=== PATIENT | male | born 1960 | race Caucasian/White ===

== ENCOUNTER 2016-06-02 11:58 | Outpatient (CLI) | payer OTHER ==
[2016-06-02] VITALS (8 sets, daily range): BP systolic 100–170; BP diastolic 33–96; PULSE 55–70; TEMP 97.8
[~2016-06-02] VITALS: Ht 182.9 cm; Wt 72.7 kg
[~2016-06-02 11:58] MED LIST: ASPIRIN 81M81 MG/TA2 PO; CYMBALTA 60MG60 MG PO; DOXYCYCLINE HY100 MG PO; FOLIC ACID 11 MG/TA1 PO; INSULIN R (N100 U/ML SQ; LEVAQUIN 5500 MG/TA1 PO; LOPRESSOR 225 MG/TAB PO; LOPRESSOR 550 MG/TAB PO; LYRICA 75MG CAP75 MG PO; METHADONE H10 MG/TAB PO; METHADOSE40 MG PO; NORVASC2.5 MG PO; NOVOLOGMIX70/30 SQ; PHOS LO PO; PRILOSEC 20MG20 MG PO; VASOTEC 5MG5 MG/TAB PO; ZEMPLAR1 MCG PO; ZOCOR 40MG40 MG PO; ZOFRAN ODT8 MG PO
== END 2016-06-02 16:56 | disposition home or self-care (01) ==
LOC: COL.RAD 11:58
DX: T82.838A Hemorrhage due to vascular prosthetic devices, implants and grafts, initial encounter (principal); N18.6 End stage renal disease; Y83.8 Other surgical procedures as the cause of abnormal reaction of the patient, or of later complication, without mention of misadventure at the time of the procedure
CPT/HCPCS: C1894; J2250; J3010; Q9967

== ENCOUNTER 2016-06-18 23:44 | Inpatient (IN) | payer MEDICARE, OTHER ==
[~2016-06-18] VITALS: Ht 182.9 cm; Wt 66.5 kg
[2016-06-19] VITALS (7 sets, daily range): BP systolic 89–152; BP diastolic 52–96; PULSE 65–80; TEMP 97.4–99
[2016-06-19 01:04] LABS: INFLUENZA B NEGATIVE
[2016-06-19] MEDS ORDERED: SODIUM FER62.5 MG/5 IV (01:14)
[2016-06-19] MEDS ORDERED: ARANESP0.04 MG/0. SQ (01:16)
[2016-06-19] MEDS ORDERED: NORVASC2.5 MG PO (01:16)
[2016-06-19 01:17] LABS: ADJUSTED CALCIUM 9.8 mg/dL (8.4-10.2); ALBUMIN 3.4 gm/dL (3.5-5.0); BILIRUBIN,TOTAL 1.6 mg/dL (0.0-1.0); CALCIUM 9.3 mg/dL (8.4-10.2); CREATININE, serum 3.86 mg/dL (0.66-1.25); POTASSIUM 4.9 mmol/L (3.4-5.0); TOTAL PROTEIN 6.6 gm/dL (6.4-8.2)
[2016-06-19 01:20] LABS: BASO # 0.1 (0.0-0.2); BASO % 1.2 % (0.0-2.0); EOS # 0.1 (0.0-0.7); EOS % 1.2 % (0-4.0); GRAN # 5.6 (1.4-6.5); GRAN % 76.2 % (42.2-75.2); HEMOGLOBIN 10.9 g/dl (13.5-18.0); LYMPH # 0.7 (1.2-3.4); LYMPH % 9.1 % (20.0-51.0); MEAN CELL VOLUME 94 fl (80.0-100.0); MEAN CORPUSCULAR HEMOGLOBIN 30 pg (27.0-31.0); MEAN CORPUSCULAR HGB CONC 32 g/dl (33.0-37.0); MONO # 0.9 (0.1-0.6); REDCELL DISTRIBUTION WIDTH-CV 19.3 % (11.5-14.5); WHITE BLOOD COUNT 7.4 K/mm3 (4.8-10.8)
[2016-06-19] MEDS ORDERED: PHOS LO PO (01:20)
[2016-06-19 01:22] LABS: PLATELET COUNT 32 K/mm3 (130-400)
[2016-06-19 01:51] LABS: ALLEN TEST YES; ALLENS TEST RESULT PASS; ARTERIAL BLD GAS O2 SATURATION 93.6 % (92-100); ARTERIAL BLD GAS TCO2 CT 28.4; ARTERIAL BLOOD GAS BASE EXCESS 2.1 (-2-2); ARTERIAL BLOOD GAS HCO3 27.1 meq/L (22-26); ARTERIAL BLOOD GAS PO2 72.1 mmHg (80-100); ARTERIAL BLOOD GAS pH 7.41 (7.35-7.45); ATS? YES
[2016-06-20 03:43] VITALS: BP 114/60; PULSE 64; TEMP 97.7
[2016-06-20 07:39] LABS: ALBUMIN 3.2 gm/dL (3.5-5.0); CALCIUM 9.2 mg/dL (8.4-10.2); CREATININE, serum 3.28 mg/dL (0.66-1.25); POTASSIUM 4.1 mmol/L (3.4-5.0)
[2016-06-20 11:10] VITALS: BP 153/113; PULSE 67; TEMP 97.6
[2016-06-20 15:50] VITALS: BP 156/129; PULSE 71; TEMP 97.5
[2016-06-20 21:15] VITALS: BP 135/83; PULSE 70; TEMP 97.8
[2016-06-20 23:15] VITALS: BP 140/83; PULSE 68; TEMP 97.4
[2016-06-21 04:00] VITALS: BP 114/80; PULSE 70; TEMP 97.8
[2016-06-21 07:43] VITALS: BP 161/115; PULSE 71; TEMP 97.8
[2016-06-21 07:54] LABS: ALBUMIN 3.4 gm/dL (3.5-5.0); CALCIUM 9.4 mg/dL (8.4-10.2); CREATININE, serum 2.98 mg/dL (0.66-1.25); PHOSPHOROUS 4.2 mg/dL (2.5-4.5)
[2016-06-21 08:47] VITALS: BP 136/74
[2016-06-21 13:02] VITALS: BP 145/96; PULSE 73; TEMP 98.1
[2016-06-21] MEDS ORDERED: LYRICA 50MG CAP50 MG PO (15:32)
[2016-06-21 16:51] VITALS: BP 143/84; PULSE 74; TEMP 97.6
[2016-06-21 20:28] VITALS: BP 105/66; PULSE 71; TEMP 98.6
[2016-06-22 00:14] VITALS: BP 134/67; PULSE 70; TEMP 97.7
[2016-06-22 04:18] VITALS: BP 108/71; PULSE 71; TEMP 97.7
[2016-06-22 07:24] LABS: MEAN CELL VOLUME 94 fl (80.0-100.0); MEAN CORPUSCULAR HGB CONC 32 g/dl (33.0-37.0); MEAN PLATELET VOLUME 11.6 fl (7.4-10.4); PLATELET COUNT 94 K/mm3 (130-400); RED BLOOD COUNT 3.36 M/mm3 (4.20-5.60); REDCELL DISTRIBUTION WIDTH-CV 18.9 % (11.5-14.5); WHITE BLOOD COUNT 5.2 K/mm3 (4.8-10.8)
[2016-06-22 07:28] LABS: ALBUMIN 3.1 gm/dL (3.5-5.0); CALCIUM 9.2 mg/dL (8.4-10.2); PHOSPHOROUS 4.1 mg/dL (2.5-4.5); POTASSIUM 3.9 mmol/L (3.4-5.0)
[2016-06-22 07:40] LABS: ADD PATHOLOGY DIFF REVIEW NO; HEMATOCRIT 31.7 % (42.0-52.0); HEMOGLOBIN 10.1 g/dl (13.5-18.0); MEAN CORPUSCULAR HEMOGLOBIN 30 pg (27.0-31.0)
[2016-06-22 08:04] LABS: CREATININE, serum 4.15 mg/dL (0.66-1.25)
[2016-06-22 08:15] LABS: BAND 5 % (0-10); EOSINOPHIL 12 % (0-4); METAMYELOCYTE 1 % (0-0); MYELOCYTE 1 % (0-0); NEUTROPHILS 64 % (42.0-75.2); OVALOCYTES 1+; PLATELET ESTIMATE DECREASED (NORMAL); TEAR DROP CELLS 1+; TOTAL CELLS COUNTED 100
[2016-06-22 12:13] VITALS: BP 125/77; PULSE 64; TEMP 96.9
[2016-06-22 12:35] LABS: INR 1.2 (0.8-3.0); PROTHROMBIN TIME 13.2 SECONDS (9.7-12.8)
[2016-06-22 15:21] LABS: PLEURAL FLUID - PMN 57.6 % (0-25)
[2016-06-22 15:22] LABS: PLEURAL FLUID LEFT SIDE; PLEURAL FLUID APPEARANCE HAZY; PLEURAL FLUID COLOR RED
[2016-06-22 17:18] LABS: GLUCOSE,PLEURAL FLUID 150 mg/dL
[2016-06-22 17:23] VITALS: BP 137/82; PULSE 73
[2016-06-22 20:00] VITALS: BP 118/72; PULSE 75; TEMP 98.5
[2016-06-23] VITALS (7 sets, daily range): BP systolic 108–153; BP diastolic 60–85; PULSE 68–78; TEMP 96.8–99
[2016-06-23 08:28] LABS: ALBUMIN 3.1 gm/dL (3.5-5.0); CALCIUM 8.9 mg/dL (8.4-10.2); CREATININE, serum 3.16 mg/dL (0.66-1.25); PHOSPHOROUS 3.1 mg/dL (2.5-4.5); POTASSIUM 3.6 mmol/L (3.4-5.0)
[2016-06-24 03:14] VITALS: BP 123/65; PULSE 74; TEMP 98
[2016-06-24 07:00] VITALS: BP 101/72; PULSE 72; TEMP 97.3
[2016-06-24 08:37] LABS: CALCIUM 8.8 mg/dL (8.4-10.2); PHOSPHOROUS 3.6 mg/dL (2.5-4.5); POTASSIUM 4.1 mmol/L (3.4-5.0)
[2016-06-24 08:42] LABS: CREATININE, serum 4.68 mg/dL (0.66-1.25)
[2016-06-24 09:00] VITALS: BP 122/84
[2016-06-24 12:02] VITALS: BP 131/65; PULSE 67; TEMP 97.4
[2016-06-24 16:51] VITALS: BP 149/71; PULSE 69; TEMP 98
[2016-06-24 23:02] VITALS: BP 115/73; PULSE 71; TEMP 97.7
[2016-06-25 03:22] VITALS: BP 138/76; PULSE 71; TEMP 98.3
[2016-06-25 07:27] LABS: ALBUMIN 2.9 gm/dL (3.5-5.0); CALCIUM 8.5 mg/dL (8.4-10.2); CREATININE, serum 3.61 mg/dL (0.66-1.25); PHOSPHOROUS 3.1 mg/dL (2.5-4.5); POTASSIUM 3.6 mmol/L (3.4-5.0)
[2016-06-25 07:45] VITALS: BP 140/70; PULSE 66; TEMP 98.4
[2016-06-25 12:35] VITALS: BP 110/67; PULSE 71; TEMP 97.7
[2016-06-25] MEDS ORDERED: OMNICEF 300MG300 MG PO (16:24)
== END 2016-06-25 17:28 | disposition home health service (06) | DRG 193 ==
LOC: COL.ER 23:44 → MEDICAL 06-19 02:54
PROVIDERS: Emergency Medicine; Internal Medicine; Internal Medicine Nephrology; Internal Medicine Pulmonary Disease
PROC: 5A1D60Z (ICD-10-PCS; 2016-06-19)
PROC: 0W9B3ZX Drainage of Left Pleural Cavity, Percutaneous Approach, Diagnostic (ICD-10-PCS; principal; 2016-06-22)
DX: J18.9 Pneumonia, unspecified organism (principal); N18.6 End stage renal disease; I12.0 Hypertensive chronic kidney disease with stage 5 chronic kidney disease or end stage renal disease; J90 Pleural effusion, not elsewhere classified; F11.20 Opioid dependence, uncomplicated; E46 Unspecified protein-calorie malnutrition; Z68.1 Body mass index [BMI] 19.9 or less, adult; J95.811 Postprocedural pneumothorax; E11.22 Type 2 diabetes mellitus with diabetic chronic kidney disease; Z99.2 Dependence on renal dialysis; I25.10 Atherosclerotic heart disease of native coronary artery without angina pectoris; G89.21 Chronic pain due to trauma; Z87.891 Personal history of nicotine dependence; E87.70 Fluid overload, unspecified; D69.6 Thrombocytopenia, unspecified; I73.9 Peripheral vascular disease, unspecified
CPT/HCPCS: J0456; J0696; J1644; J1815; J2765; J7050; Q9967

== ENCOUNTER → 2016-06-28 | Outpatient (CLI) | payer MEDICARE, OTHER ==
[~2016-06-28] MED LIST changes: +ARANESP0.04 MG/0. SQ; +LYRICA 50MG CAP50 MG PO; +OMNICEF 300MG300 MG PO; +SODIUM FER62.5 MG/5 IV; +TOPROL XL 25MG25 MG PO
== END ==
LOC: COL.RAD 11:51
DX: J93.83 Other pneumothorax (principal); J90 Pleural effusion, not elsewhere classified; R91.8 Other nonspecific abnormal finding of lung field

== ENCOUNTER 2016-07-31 05:47 | Inpatient (IN) | payer MEDICARE, OTHER ==
[~2016-07-31] VITALS: Ht 175.3 cm; Wt 61.2 kg
[~2016-07-31 05:47] MED LIST changes: -TOPROL XL 25MG25 MG PO
[2016-07-31 06:37] LABS: INFLUENZA B NEGATIVE
[2016-07-31 06:49] LABS: MEAN CELL VOLUME 94 fl (80.0-100.0); MEAN CORPUSCULAR HGB CONC 32 g/dl (33.0-37.0); RED BLOOD COUNT 3.82 M/mm3 (4.20-5.60); REDCELL DISTRIBUTION WIDTH-CV 16.3 % (11.5-14.5); WHITE BLOOD COUNT 4.6 K/mm3 (4.8-10.8)
[2016-07-31 06:51] LABS: HEMATOCRIT 35.8 % (42.0-52.0); HEMOGLOBIN 11.6 g/dl (13.5-18.0); MEAN CORPUSCULAR HEMOGLOBIN 30 pg (27.0-31.0)
[2016-07-31 06:57] LABS: INR 1.5 (0.8-3.0); PROTHROMBIN TIME 17.3 SECONDS (9.7-12.8)
[2016-07-31 07:03] LABS: ADJUSTED CALCIUM 9.6 mg/dL (8.4-10.2); ALANINE AMINOTRANSFERASE 34 U/L (21-72); ALBUMIN 3.4 gm/dL (3.5-5.0); ALKALINE PHOSPHATASE 344 U/L (50-136); ANION GAP 16 mmol/L (7-16); BILIRUBIN,TOTAL 1.1 mg/dL (0.0-1.0); BLOOD UREA NITROGEN 46 mg/dL (9-20); CALCIUM 9.1 mg/dL (8.4-10.2); CARBON DIOXIDE 24 mmol/L (22-30); CHLORIDE 92 mmol/L (98-107); POTASSIUM 4.9 mmol/L (3.4-5.0); SODIUM 132 mmol/L (137-145); TOTAL PROTEIN 7.2 gm/dL (6.4-8.2)
[2016-07-31 07:09] LABS: CREATININE, serum 4.63 mg/dL (0.66-1.25); GLUCOSE 472 mg/dL (74-106)
[2016-07-31 07:11] LABS: ADD PATHOLOGY DIFF REVIEW NO; PLATELET COUNT 61 K/mm3 (130-400)
[2016-07-31 07:14] LABS: TROPONIN-I 0.027 ng/mL (0.000-0.034)
[2016-07-31 07:21] LABS: BAND 9 % (0-10); BASOPHIL 1 % (0-2); METAMYELOCYTE 2 % (0-0); NEUTROPHILS 77 % (42.0-75.2); PLATELET ESTIMATE DECREASED (NORMAL)
[2016-07-31 07:24] LABS: ANISOCYTOSIS 1+; POLYCHROMASIA 1+
[2016-07-31 07:26] LABS: TOTAL CELLS COUNTED 100
[2016-07-31] MEDS ORDERED: VASOTEC 5MG5 MG/TAB PO (07:49)
[2016-07-31] MEDS ORDERED: METHADOSE40 MG PO (07:52)
[2016-07-31] MEDS ORDERED: ZEMPLAR1 MCG PO (07:57)
[2016-07-31] MEDS ORDERED: TOPROL XL 25MG25 MG PO (07:58)
[2016-07-31 08:34] LABS: B-TYPE NATRIURETIC PEPTIDE 331000 pg/mL (0-125)
[2016-07-31 14:17] VITALS: BP 109/76; PULSE 63; TEMP 98.2
[2016-07-31 17:15] VITALS: BP 118/76; PULSE 66; TEMP 98.4
[2016-07-31 20:46] VITALS: BP 122/81; PULSE 72; TEMP 98.1
[2016-08-01] VITALS (7 sets, daily range): BP systolic 98–136; BP diastolic 62–92; PULSE 64–74; TEMP 97–98.2
[2016-08-01 08:12] LABS: MEAN CELL VOLUME 95 fl (80.0-100.0); MEAN CORPUSCULAR HGB CONC 32 g/dl (33.0-37.0); MEAN PLATELET VOLUME 13.4 fl (7.4-10.4); RED BLOOD COUNT 3.73 M/mm3 (4.20-5.60); REDCELL DISTRIBUTION WIDTH-CV 16.6 % (11.5-14.5); WHITE BLOOD COUNT 5.4 K/mm3 (4.8-10.8)
[2016-08-01 08:20] LABS: HEMATOCRIT 35.3 % (42.0-52.0); HEMOGLOBIN 11.4 g/dl (13.5-18.0); MEAN CORPUSCULAR HEMOGLOBIN 31 pg (27.0-31.0); PLATELET COUNT 65 K/mm3 (130-400)
[2016-08-01 08:21] LABS: ADD PATHOLOGY DIFF REVIEW NO
[2016-08-01 08:23] LABS: ADJUSTED CALCIUM 9.4 mg/dL (8.4-10.2); ALBUMIN 3.2 gm/dL (3.5-5.0); BILIRUBIN,TOTAL 1.1 mg/dL (0.0-1.0); CALCIUM 8.8 mg/dL (8.4-10.2); CREATININE, serum 3.54 mg/dL (0.66-1.25); POTASSIUM 4.4 mmol/L (3.4-5.0); TOTAL PROTEIN 7.1 gm/dL (6.4-8.2)
[2016-08-01 10:06] LABS: BAND 6 % (0-10); BASOPHIL 1 % (0-2); EOSINOPHIL 4 % (0-4); METAMYELOCYTE 1 % (0-0); NEUTROPHILS 65 % (42.0-75.2); TOTAL CELLS COUNTED 100
[2016-08-01 10:08] LABS: PLATELET ESTIMATE DECREASED (NORMAL)
[2016-08-01 10:13] LABS: ANISOCYTOSIS 1+; OVALOCYTES 1+
[2016-08-02 04:16] VITALS: BP 135/87; PULSE 71; TEMP 98.6
[2016-08-02 07:23] VITALS: BP 135/89; PULSE 71; TEMP 98
[2016-08-02 07:24] LABS: BASO % 0.7 % (0.0-2.0); EOS # 0.3 (0.0-0.7); EOS % 4.1 % (0-4.0); GRAN # 4.6 (1.4-6.5); GRAN % 75.4 % (42.2-75.2); LYMPH # 0.5 (1.2-3.4); LYMPH % 8.6 % (20.0-51.0); MEAN CELL VOLUME 94 fl (80.0-100.0); MEAN CORPUSCULAR HGB CONC 33 g/dl (33.0-37.0); MEAN PLATELET VOLUME 13.5 fl (7.4-10.4); MONO # 0.7 (0.1-0.6); MONO % 10.7 % (1.7-9.3); PLATELET COUNT 83 K/mm3 (130-400); RED BLOOD COUNT 3.74 M/mm3 (4.20-5.60); REDCELL DISTRIBUTION WIDTH-CV 16.8 % (11.5-14.5); WHITE BLOOD COUNT 6.1 K/mm3 (4.8-10.8)
[2016-08-02 07:28] LABS: HEMATOCRIT 35.1 % (42.0-52.0); HEMOGLOBIN 11.5 g/dl (13.5-18.0); MEAN CORPUSCULAR HEMOGLOBIN 31 pg (27.0-31.0)
[2016-08-02 07:30] LABS: ADJUSTED CALCIUM 9.3 mg/dL (8.4-10.2); ALBUMIN 3.1 gm/dL (3.5-5.0); BILIRUBIN,TOTAL 1.1 mg/dL (0.0-1.0); CALCIUM 8.6 mg/dL (8.4-10.2); POTASSIUM 4.3 mmol/L (3.4-5.0); TOTAL PROTEIN 7.1 gm/dL (6.4-8.2)
[2016-08-02 08:37] LABS: CREATININE, serum 4.69 mg/dL (0.66-1.25)
[2016-08-02] MEDS ORDERED: METHADOSE40 MG PO (10:54)
[2016-08-02 12:29] VITALS: BP 129/87; PULSE 71; TEMP 97.8
[2016-08-02 17:03] VITALS: BP 137/91; PULSE 74; TEMP 97.9
[2016-08-02 21:19] VITALS: BP 145/90; PULSE 73; TEMP 98.7
[2016-08-03 00:15] VITALS: BP 143/95; PULSE 72; TEMP 98.6
[2016-08-03 03:47] VITALS: BP 143/98; PULSE 74; TEMP 98.7
[2016-08-03 07:35] LABS: BASO % 0.6 % (0.0-2.0); EOS # 0.2 (0.0-0.7); EOS % 5.1 % (0-4.0); GRAN # 2.5 (1.4-6.5); GRAN % 69.5 % (42.2-75.2); HEMATOCRIT 48.3 % (42.0-52.0); LYMPH # 0.5 (1.2-3.4); LYMPH % 13.8 % (20.0-51.0); MEAN CELL VOLUME 96 fl (80.0-100.0); MEAN CORPUSCULAR HGB CONC 32 g/dl (33.0-37.0); MONO # 0.4 (0.1-0.6); MONO % 10.7 % (1.7-9.3); RED BLOOD COUNT 5.05 M/mm3 (4.20-5.60); REDCELL DISTRIBUTION WIDTH-CV 17.2 % (11.5-14.5); WHITE BLOOD COUNT 3.5 K/mm3 (4.8-10.8)
[2016-08-03 07:37] VITALS: BP 135/96; PULSE 56; TEMP 98.1
[2016-08-03 07:37] LABS: HEMOGLOBIN 15.3 g/dl (13.5-18.0); MEAN CORPUSCULAR HEMOGLOBIN 30 pg (27.0-31.0); PLATELET COUNT 58 K/mm3 (130-400)
[2016-08-03 08:16] LABS: ADJUSTED CALCIUM 9.4 mg/dL (8.4-10.2); ALBUMIN 3.3 gm/dL (3.5-5.0); BILIRUBIN,TOTAL 1.3 mg/dL (0.0-1.0); CALCIUM 8.8 mg/dL (8.4-10.2); POTASSIUM 4.7 mmol/L (3.4-5.0); TOTAL PROTEIN 7.6 gm/dL (6.4-8.2)
[2016-08-03 08:23] LABS: CREATININE, serum 4.07 mg/dL (0.66-1.25)
[2016-08-03 11:15] VITALS: BP 151/89; PULSE 72; TEMP 97.9
[2016-08-03 16:20] VITALS: BP 151/104; PULSE 71; TEMP 98.3
== END 2016-08-03 16:30 | disposition home health service (06) | DRG 91 ==
LOC: COL.ER 05:47 → MEDICAL 07:24
PROVIDERS: Emergency Medicine; Internal Medicine Nephrology
PROC: 5A1D60Z (ICD-10-PCS; principal; 2016-07-31)
DX: G92 Toxic encephalopathy (principal); N18.6 End stage renal disease; I12.0 Hypertensive chronic kidney disease with stage 5 chronic kidney disease or end stage renal disease; E46 Unspecified protein-calorie malnutrition; Z68.1 Body mass index [BMI] 19.9 or less, adult; T40.3X5A Adverse effect of methadone, initial encounter; E86.1 Hypovolemia; E87.70 Fluid overload, unspecified; E11.65 Type 2 diabetes mellitus with hyperglycemia; G89.29 Other chronic pain; E11.22 Type 2 diabetes mellitus with diabetic chronic kidney disease; Z86.73 Personal history of transient ischemic attack (TIA), and cerebral infarction without residual deficits; Z79.4 Long term (current) use of insulin
CPT/HCPCS: J1815; J2543; J7050